=== PATIENT | male | born 1995 | race Caucasian/White ===

== ENCOUNTER 2022-02-27 19:13 | Emergency (ER) | payer SELFPAY ==
[2022-02-27] MEDS ORDERED: Ibuprofen 200 MG TAB ONE (20:19)
[2022-02-27] MEDS ORDERED: Sulfameth/Trimethoprim DS 800-160mg TAB ONE (20:19)
[2022-02-27] MEDS ORDERED: Boostrix 0.5 ML (Tdap) VIAL ONE (20:19)
[2022-02-27] MEDS ORDERED: Amoxicillin/Potassium Clav 875 MG TAB ONE (20:19)
== END 2022-02-27 20:38 | disposition home or self-care (01) ==
LOC: NAV ERS 19:13
DX: S61.512A Laceration without foreign body of left wrist, initial encounter (principal); L03.114 Cellulitis of left upper limb; F17.210 Nicotine dependence, cigarettes, uncomplicated; Y28.8XXA Contact with other sharp object, undetermined intent, initial encounter
CPT/HCPCS: 87070; 87077; 87186; 87205; 90471; 90715